=== PATIENT | male | born 1990 | race Caucasian/White ===

== ENCOUNTER 2016-12-21 22:35 | Emergency (ER) | payer OTHER ==
--- NOTE | ~2016-12-21 | ER ---
PATIENT'S NAME: ARLENE [facility]CHBOLD - [facility] AGE: 26 Y [address] ROOM: [place] [address] LOCATION: [facility] ADMIT DATE: 12/21/2016 ER/Outpatient Report DISCHARGE DATE: 12/21/2016 FAMILY PHYSICIAN: PHYSICIAN, NO ATTENDING PHYSICIAN: Kerwin Silva SEEN AT: 2250 hours. CHIEF COMPLAINT: Left forearm swelling. HISTORY OF PRESENT ILLNESS: The patient is a 26-year-old male. 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 The patient still does not complain of any significant pain or fever or itching. The patient has been taking some Benadryl over-the- counter. ALLERGIES: NONE. HOME MEDICATIONS: None. MEDICAL HISTORY: No chronic diseases. SURGERIES: Include a hernia repair and appendectomy, SOCIAL HISTORY: Smoker, a pack a day. Alcohol daily. Works as a show host. REVIEW OF SYSTEMS: GENERAL: Health good. HEAD/EENT: Denies any oral swelling or sore throat. RESPIRATORY: No shortness of breath. No chest pain. GASTROINTESTINAL: No abdominal pain, vomiting, or diarrhea. MUSCULOSKELETAL: Includes left forearm swelling, some mild redness; however, no pain. OBJECTIVE FINDINGS: PATIENT'S NAME: HOLLIS JACOBS [facility] AGE: 26 Y [address] ROOM: [place] [address] LOCATION: [facility] ADMIT DATE: 12/21/2016 ER/Outpatient Report DISCHARGE DATE: 12/21/2016 FAMILY PHYSICIAN: PHYSICIAN, NO ATTENDING PHYSICIAN: Kerwin Silva VITAL SIGNS: His blood pressure was 157/102, his temperature was 95.6, his respiratory rate 16, pulse 105, and his O2 saturations 96%. GENERAL APPEARANCE: Alert. No distress. LUNGS: Clear. EXTREMITIES: Left forearm was swollen. There was some mild redness especially on the volar side. He had some swelling of the dorsal hand. There was presence of an old cut on one of his fingers. The area on the forearm, which was swollen, was nontender, had good radial pulse. ASSESSMENT: 1. Probable local reaction to insect bite. 2. Possible cellulitis. PLAN: The patient will continue the Benadryl 50 mg every 6 hours. Recommend he elevate it above his heart. Ice 10 to 15 minutes tonight. Keflex 500 one q.i.d. Medrol Dosepak. I advised that he try to limit his activity, keep it elevated, follow up in 48 hours if pain is not improving or he has fever or in any significant pain. The patient verbalized understanding of our recommendations and plan and agreed. ELOISA RODRIGUEZ FOR MD YULISSA CAMARILLO/emmanuel /[id number] d: 12/22/16 0259 t: 01/05/17 1820, OUTPATIENT REPORT
== END 2016-12-21 23:10 | disposition disaster alternative care site (69) ==
LOC: GMED 22:35
DX: S50.862A Insect bite (nonvenomous) of left forearm, initial encounter (principal); M79.89 Other specified soft tissue disorders; F17.210 Nicotine dependence, cigarettes, uncomplicated; Z90.49 Acquired absence of other specified parts of digestive tract; Z98.890 Other specified postprocedural states; W57.XXXA Bitten or stung by nonvenomous insect and other nonvenomous arthropods, initial encounter